=== PATIENT | female | born 1990 | race Two or more races ===

== ENCOUNTER 2022-09-25 21:59 | Inpatient (IN) | payer SELFPAY ==
[2022-09-25] MEDS ORDERED: SODIUM CHLORIDE 1,000 ML IV STA ×2 (22:51→22:58)
[2022-09-25] MEDS ORDERED: ACETAMINOPHEN 1000 MG/100 ML BAG IVPB ONE (22:51)
[2022-09-25] MEDS ORDERED: ONDANSETRON 4 MG/2 ML VIAL IVPUSH ONE (23:09)
[2022-09-25 23:30] LABS: BASO % 0.1 % (0-2.0); HEMATOCRIT 37.3 % (32.4-45.2); HEMOGLOBIN 12.8 GM/dL (10.7-15.3); LYMPH % 2.7 % (8-40); MCH 29.2 pg (25.7-33.7); MCHC 34.2 g/dl (32.0-36.0); MEAN CELL VOLUME 85.4 fl (80-96); MEAN PLT VOLUME 7.7 fl (7.5-11.1); MONO % 5.5 % (3.8-10.2); NEUT % 91.7 % (42.8-82.8); PLATELET COUNT 281 10^3/uL (134-434); RBC 4.37 M/mm3 (3.60-5.2); WHITE BLOOD COUNT 9.3 K/mm3 (4.0-10.0)
[2022-09-25 23:50] LABS: POTASSIUM 3.6 mmol/L (3.5-5.1)
[2022-09-25 23:52] LABS: CALCIUM 8.6 mg/dL (8.5-10.1)
[2022-09-25 23:53] LABS: ALBUMIN 3.6 g/dl (3.4-5.0); BLOOD UREA NITROGEN 13.2 mg/dL (7-18); MAGNESIUM 1.8 mg/dL (1.8-2.4)
[2022-09-25 23:56] LABS: CREATININE 0.8 mg/dL (0.55-1.3); PHOSPHOROUS 1.3 mg/dL (2.5-4.9)
[2022-09-25 23:57] LABS: BILIRUBIN,TOTAL 0.4 mg/dL (0.2-1)
[2022-09-25 23:58] LABS: TOT PROT 6.8 g/dl (6.4-8.2)
[2022-09-26] MEDS ORDERED: SODIUM CHLORIDE 0.9% 500 ML INFUS.BAG IV ONE ×2 (01:24→08:10)
[2022-09-26 01:32] LABS: EPI CELLS >36 /uL (0-25.1); HYALINE CASTS 0 /uL (0-3.1); URINE APPEARANCE CLEAR; URINE BACTERIA 221 /uL (0-1359); URINE BILIRUBIN NEGATIVE (NEGATIVE); URINE COLOR YELLOW; URINE GLUCOSE (UA) NEGATIVE (NEGATIVE); URINE KETONE NEGATIVE (NEGATIVE); URINE LEUK ESTERASE NEGATIVE (NEGATIVE); URINE NITRITE NEGATIVE (NEGATIVE); URINE PROTEIN NEGATIVE (NEGATIVE); URINE RBC 39 /uL (0-23.9); URINE UROBILINOGEN 0.2 mg/dL (0.2-1.0); URINE WBC 19 /uL (0-25.8)
[2022-09-26] MEDS ORDERED: NAPH,MB-DB/K PH,MBDB POWDER PACKET PO ONE (02:47)
[2022-09-26] MEDS ORDERED: NAPH,MB-DB/K PH,MBDB POWDER PACKET ONE (03:15)
[2022-09-26] MEDS ORDERED: PIPERACILLIN/TAZOB 3.375 GM 3.375 GM in DEXTROSE 5%-WATER - 50 ML IVPB ONE (04:22)
[2022-09-26] MEDS ORDERED: VANCOMYCIN 1,000 MG in DEXTROSE 5%-WATER - 250 ML IVPB ONE (04:22)
[2022-09-26] MEDS ORDERED: PIPERACILLIN/TAZOB 3.375 GM 3.375 GM/50 ML BAG IVPB ONE (04:26)
[2022-09-26] MEDS ORDERED: VANCOMYCIN/WATER FOR INJ (PEG) 1,000 MG/200 ML BAG IVPB ONE (04:34)
[2022-09-26] MEDS ORDERED: ACETAMINOPHEN 1000 MG/100 ML BAG IVPB ONE (07:43)
[2022-09-26] MEDS ORDERED: ACETAMINOPHEN INJECTION 100 ML IVPB ONE (08:52)
[2022-09-26] MEDS ORDERED: ACETAMINOPHEN 500 MG TABLET (FP) PO PRN (09:22)
[2022-09-26 13:38] VITALS: BMI 27.8
[2022-09-26] MEDS: CEFTRIAXONE 1 GM in DEXTROSE 5%-WATER - 50 ML IVPB SCH (20:41)
[2022-09-27] MEDS: CEFTRIAXONE 1 GM in DEXTROSE 5%-WATER - 50 ML IVPB SCH (10:02)
[2022-09-27 10:54] LABS: BASO % 0.5 % (0-2.0); EOS % 0.5 % (0-4.5); HEMATOCRIT 31.9 % (32.4-45.2); HEMOGLOBIN 11.2 GM/dL (10.7-15.3); MCH 29.7 pg (25.7-33.7); MEAN CELL VOLUME 84.9 fl (80-96); MEAN PLT VOLUME 7.7 fl (7.5-11.1); MONO % 9.6 % (3.8-10.2); NEUT % 70.4 % (42.8-82.8); PLATELET COUNT 259 10^3/uL (134-434); RBC 3.76 M/mm3 (3.60-5.2); RDW 12.9 % (11.6-15.6); WHITE BLOOD COUNT 4.6 K/mm3 (4.0-10.0)
[2022-09-27 11:12] LABS: POTASSIUM 3.5 mmol/L (3.5-5.1)
[2022-09-27 11:15] LABS: CALCIUM 8.4 mg/dL (8.5-10.1)
[2022-09-27 11:22] LABS: CREATININE 0.6 mg/dL (0.55-1.3)
[2022-09-27 11:34] VITALS: RESP 16
[2022-09-27 14:23] VITALS: BP 126/74; PULSE 76; TEMP 98.2
[2022-09-28 15:07] LABS: CMV IgM < 30.0 AU/mL (0.0-29.9)
== END 2022-09-27 14:14 | disposition home or self-care (01) | DRG 463 ==
LOC: JER 21:59 → JERBED 09-26 04:52 → J5S 09-26 12:52
PROVIDERS: ADMIT Internal Medicine
DX: N39.0 Urinary tract infection, site not specified (principal); G43.909 Migraine, unspecified, not intractable, without status migrainosus; R65.10 Systemic inflammatory response syndrome (SIRS) of non-infectious origin without acute organ dysfunction; Z98.82 Breast implant status; R53.81 Other malaise; J06.9 Acute upper respiratory infection, unspecified
CPT/HCPCS: 0241U-QW; 36415; 71045-TC-FY; 71260-TC; 80048; 80053; 81003; 83605; 83735; 84100; 84484; 84703; 85025; 86618; 86644; 86645; 86664; 87040; 87086; 87207; 93005; 93010; 99285-25; Q9967

== ENCOUNTER 2023-11-12 10:00 | Emergency (ER) | payer OTHER ==
[2023-11-12 10:12] VITALS: BP 130/85; PULSE 18; RESP 80; TEMP 98.7; BMI 25.1
[2023-11-12] MEDS ORDERED: diazePAM 2 MG TABLET ONE (10:34)
[2023-11-12] MEDS ORDERED: IBUPROFEN 400 MG TABLET (FP) PO ONE (10:35)
[2023-11-12] MEDS ORDERED: ACETAMINOPHEN 500 MG TABLET (FP) ONE (10:35)
[2023-11-12] MEDS: diazePAM 2 MG TABLET PO ONE (10:37)
[2023-11-12] MEDS: ACETAMINOPHEN 500 MG TABLET (FP) PO ONE (10:37)
[2023-11-12] MEDS: IBUPROFEN 400 MG TABLET (FP) PO ONE (10:37)
== END 2023-11-12 12:01 | disposition home or self-care (01) ==
LOC: JERFT 10:00
DX: S06.0X0A Concussion without loss of consciousness, initial encounter (principal); V43.52XA Car driver injured in collision with other type car in traffic accident, initial encounter
CPT/HCPCS: 70450-TC; 71046-TC-FY; 99284-25